=== PATIENT | male | born 1990 | race Caucasian/White ===

== ENCOUNTER → 2017-05-25 | Outpatient (CLI) | payer OTHER ==
--- NOTE | 2017-05-25 10:52 | XR ---
EXAM TYPE: LUMBAR SPINE X RAY SERIES COMPARISON: NONE HISTORY: Back pain TECHNIQUE: Three views are submitted. FINDINGS: Alignment is anatomic. The pedicles are intact. The transverse processes are intact. There is no s pondylolysis or spondylolisthesis. IMPRESSION: 1. No acute process.
--- NOTE | 2017-05-25 10:53 | XR ---
EXAMINATION TYPE: XR thoracic spine complete DATE OF EXAM: 05/25/2017 COMPARISON: NONE HISTORY: Back pain Alignment is anatomic. There is no compression deformities. Vertebral body height and disc interspa cristin are maintained. Curvature of the spine noted. IMPRESSION: 1. No acute abnormality.
== END | disposition home or self-care (01) ==
LOC: RADXRMAIN 10:15
PROVIDERS: ATTEND Family Medicine
DX: M54.9 Dorsalgia, unspecified (principal); G89.29 Other chronic pain
CPT/HCPCS: 72072; 72100

== ENCOUNTER → 2018-05-31 | Outpatient (CLI) | payer OTHER ==
--- NOTE | 2018-05-31 16:48 | XR ---
EXAMINATION TYPE: XR knee complete LT DATE OF EXAM: 05/31/2018 COMPARISON: NONE HISTORY: Pain TECHNIQUE: 3 views FINDINGS: There is no sign of fracture nor dislocation. Joint spaces are fairly normal. There is no s ign of joint effusion. There is mild soft tissue swelling anterior to the patella. IMPRESSION: No acute bony abnormality of the left knee.
== END | disposition home or self-care (01) ==
LOC: RADXRMAIN 16:24
PROVIDERS: ATTEND Physician Assistant
DX: M25.562 Pain in left knee (principal)